=== PATIENT | male | born 1990 | race Caucasian/White ===

== ENCOUNTER 2018-08-24 12:54 | Emergency (ER) | payer MEDICAID, OTHER ==
[~2018-08-24] VITALS: Ht 167.6 cm; Wt 60.9 kg
[2018-08-24 12:57] VITALS: BP 138/98
--- NOTE | 2018-08-24 13:14 | NUR ---
REPORT RECEIVED FROM GAUDENCIO GONZALES. ASSUMED CARE OF PT.
[2018-08-24] MEDS ORDERED: QUET50TA5 PO (13:43)
== END 2018-08-24 13:47 | disposition home or self-care (01) ==
LOC: ED 13:43
DX: F41.9 Anxiety disorder, unspecified (principal); Z76.0 Encounter for issue of repeat prescription; F32.9 Major depressive disorder, single episode, unspecified; F17.200 Nicotine dependence, unspecified, uncomplicated
CPT/HCPCS: 99283